=== PATIENT | female | born 1975 | race Hispanic/Latino ===

== ENCOUNTER 2021-04-26 17:19 | Emergency (ER) | payer OTHER ==
[~2021-04-26] VITALS: Ht 165.1 cm; Wt 81.0 kg
[2021-04-26] MEDS ORDERED: EFFE75CA2 PO (17:32)
[2021-04-26] MEDS ORDERED: LISI10TA15 PO (17:32)
[2021-04-26] MEDS ORDERED: METF500T13 PO (17:32)
[2021-04-26] MEDS ORDERED: LAMO200T3 PO (17:32)
[2021-04-26] MEDS ORDERED: BUPR10TASR PO (17:32)
[2021-04-26] MEDS ORDERED: ATOR1TAB21 PO (17:32)
[2021-04-26] MEDS ORDERED: NORV5TAB PO (17:32)
[2021-04-26] MEDS ORDERED: SERO1TAB PO (17:32)
[2021-04-26] MEDS ORDERED: ACET-683 PO (17:34)
[2021-04-26] MEDS ORDERED: MACR100C43 PO (17:34)
[2021-04-26] MEDS ORDERED: ONDANSETRON 4MG/2ML VIAL IV ONE (18:55)
[2021-04-26] MEDS ORDERED: ONDANSETRON 4MG/2ML VIAL As Ordered ONE (18:55)
[2021-04-26] MEDS ORDERED: NS 2,430 ML in IV 1 EA IV ONE (18:55)
[2021-04-26] MEDS ORDERED: ACETAMINOPHEN TAB 650MG DOSE (2X325MG) PO ONE (19:00)
[2021-04-26] MEDS ORDERED: cefTRIAXone SOD 1 GM in D5W MINI-BAG PLUS 50 ML IV ONE (19:10)
[2021-04-26 19:15] LABS: BASO % 0.4 % (0.0-1.0); EOS % 0.1 % (0.0-3.0); HEMATOCRIT 35.4 % (36.0-47.0); LYMPH # 0.9 10^3/uL (1.5-5.0); LYMPH % 10.5 % (24.0-44.0); MEAN CORPUSCULAR HEMOGLOBIN 25.3 pg (27.0-33.0); MEAN CORPUSCULAR HGB CONC 31.1 g/dl (32.0-36.5); MEAN CORPUSCULAR VOLUME 81.4 fl (80.0-96.0); MONO # 1.1 10^3/uL (0.0-0.8); MONO % 12.5 % (2.0-8.0); NEUTROPHILS # 6.4 10^3/uL (1.5-8.5); NEUTROPHILS % 76.1 % (36.0-66.0); PLATELET COUNT, AUTOMATED 227 10^3/uL (150-450); RED BLOOD COUNT 4.35 10^6/uL (4.00-5.40); WHITE BLOOD COUNT 8.5 10^3/uL (4.0-10.0)
[2021-04-26] MEDS ORDERED: KETOROLAC 30 MG/ML 1ML VIAL IV ONE (19:35)
[2021-04-26 19:51] LABS: ALBUMIN 3.4 GM/DL (3.2-5.2); BILIRUBIN,DIRECT 0.2 MG/DL (0.0-0.2); BILIRUBIN,TOTAL 0.6 MG/DL (0.2-1.0); TOTAL PROTEIN 7.5 GM/DL (6.4-8.2)
[2021-04-26] MEDS ORDERED: ISOVUE-370 76% 100ML VIAL As Ordered ONE (19:51)
--- OUTSIDE RECORDS SUMMARY | 2021-04-26 20:16 | CCD ---
Author Author [facility] Address Unknown Phone Unavailable Support Name Relationship Address Phone [facility] Next Of Kin [place], [place] [id number] JONNA BOSS Next Of Kin [place], [place] [id number] Re-disclosure Warning The records that you are about to access may contain information from federally-assisted alcohol or drug abuse programs. If such information is present, then the following federally mandated warning applies: This information has been disclosed to you from records protected by federal confidentiality rules (42 CFR part 2). The federal rules prohibit you from making any further disclosure of this information unless further disclosure is expressly permitted by the written consent of the person to whom it pertains or as otherwise permitted by 42 CFR part 2. A general authorization for the release of medical or other information is NOT sufficient for this purpose. The Federal rules restrict any use of the information to criminally investigate or prosecute any alcohol or drug abuse patient.The records that you are about to access may contain highly sensitive health information, the redisclosure of which is protected by Article 27-F of the [facility] Public Health law. If you continue you may have access to information: Regarding HIV / AIDS; Provided by facilities licensed or operated by the [facility] Office of Mental Health; or Provided by the [facility] Office for People With Developmental Disabilities. If such information is present, then the following [facility] mandated warning applies: This information has been disclosed to you from confidential records which are protected by state law. State law prohibits you from making any further disclosure of this information without the specific written consent of the person to whom it pertains, or as otherwise permitted by law. Any unauthorized further disclosure in violation of state law may result in a fine or halfway sentence or both. A general authorization for the release of medical or other information is NOT sufficient authorization for further disc losure. Medications No Information Insurance Providers Payer name Policy type / Coverage type Policy ID Covered republican ID Covered republican's relationship to [place] Policy [place] [facility] Information [facility] [id number] Problems, Conditions, and Diagnoses No Information Surgeries/Procedures No Information Results No Information Social History No Information
[2021-04-26] MEDS ORDERED: PROMETHAZINE INJ 25 MG/ML VIAL (J2550) IV ONE (20:45)
--- NOTE | 2021-04-26 21:49 | REPVR ---
PROCEDURE INFORMATION: Exam: CT Abdomen And Pelvis With Contrast Exam date and time: 04/26/2021 8:23 PM Age: 46 years old Clinical indication: Other: Fever, dysuria, flank pain TECHNIQUE: Imaging protocol: Computed tomography of the abdomen and pelvis with contrast. Radiation optimization: All CT scans at this facility use at least one of these dose optimization techniques: automated exposure control; mA and/or kV adjustment per patient size (includes targeted exams where dose is matched to clinical indication); or iterative reconstruction. Contrast material: ISOVUE 370; Contrast volume: 100 ml; Contrast route: INTRAVENOUS (IV); COMPARISON: No relevant prior studies available. FINDINGS: Lungs: Bibasilar atelectasis. Liver: There is a diffuse decrease in hepatic parenchymal density, consistent with steatosis. Gallbladder and bile ducts: There has been a cholecystectomy. Pancreas: Normal. No ductal dilation. Spleen: There is mild splenomegaly with a maximum span of 13.3 centimeters. No focal abnormalities demonstrated. Adrenal glands: Normal. No mass. Kidneys and ureters: Patchy parenchymal enhancement in the mid and lower pole of the left kidney consistent with the presence of pyelonephritis. 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 No follow-up suggested. Right kidney unremarkable. Stomach and bowel: Unremarkable. No obstruction. No mucosal thickening. Appendix: No evidence of appendicitis. Intraperitoneal space: Unremarkable. No free air. No significant fluid collection. Vasculature: Unremarkable. No abdominal aortic aneurysm. Lymph nodes: Unremarkable. No enlarged lymph nodes. Urinary bladder: Unremarkable as visualized. Reproductive: Unremarkable as visualized. Bones/joints: Unremarkable. No acute fracture. Soft tissues: Bilateral breast implants. IMPRESSION: 1. There is a diffuse decrease in hepatic parenchymal density, consistent with steatosis. 2. There has been a cholecystectomy. 3. There is mild splenomegaly with a maximum span of 13.3 centimeters. No focal abnormalities demonstrated. 4. Patchy parenchymal enhancement in the mid and lower pole of the left kidney consistent with the presence of pyelonephritis. COMMENTS: Consistent with the [employer]'s Incidental Findings Committee white paper (J Am Donte Radiol 2018): Any incidental renal lesion less than 1 cm or classified as too small to characterize, or any incidental cystic renal lesion characterized as simple-appearing, is likely benign. No follow-up imaging is recommended for these lesions per consensus recommendations based on imaging criteria. Electronically signed by: Simon Michelle On 04/26/2021 21:48:51 PM
[2021-04-26] MEDS ORDERED: CEFD300CAP PO (22:30)
[2021-04-26 23:09] VITALS: BP 121/82
--- NOTE | 2021-04-27 10:44 | ED PDOC ---
Post-Departure Follow-Up certified letter sent to pt re formal read of ct abd/p - needs fu. obtain pcp bijan sebastian and fax Alonzo Morin MD Apr 27, 2021 10:44
== END 2021-04-26 23:19 | disposition home or self-care (01) ==
LOC: M ED 17:19
DX: N10 Acute pyelonephritis (principal); E11.9 Type 2 diabetes mellitus without complications; I10 Essential (primary) hypertension; E78.5 Hyperlipidemia, unspecified; K21.9 Gastro-esophageal reflux disease without esophagitis; F41.9 Anxiety disorder, unspecified; F32.9 Major depressive disorder, single episode, unspecified
CPT/HCPCS: 36415; 74177; 80047; 80076; 81001; 83605; 84702; 85025; 87040; 87086; 96361; 96365; 96366; 96375; 99284; J0696; J1885; J2405; Q9967